=== PATIENT | male | born 1950 | race Caucasian/White ===

== ENCOUNTER 2017-04-26 07:52 | Day surgery (SDC) | payer MEDICARE, BC ==
[2017-04-26] VITALS (7 sets, daily range): BP systolic 116–147; BP diastolic 52–82; PULSE 67–82; RESP 18–20; TEMP 97.8–98.6; O2SAT 90–94
[~2017-04-26] VITALS: Ht 177.8 cm; Wt 114.6 kg
[~2017-04-26 07:52] MED LIST: ASPI81TA82 PO; COZA100T PO; HYDR-2768 PO; LEXA10TA PO; METO50CR OR; NAPR220T95 OR; SIMV80TA OR; ZOLP10TA3 OR
[2017-04-26] MEDS ORDERED: DUTA1CAP2 PO (08:24)
[2017-04-26] MEDS ORDERED: GLIP10TA6 PO (08:24)
[2017-04-26] MEDS ORDERED: HYDR25TA5 PO (08:24)
[2017-04-26] MEDS ORDERED: ESCI20TA PO (08:24)
[2017-04-26] MEDS ORDERED: PROSCAP3 PO (08:29)
[2017-04-26] MEDS ORDERED: TAMS0.4C4 PO (08:29)
[2017-04-26] MEDS ORDERED: ARTH650T6 PO (08:29)
[2017-04-26] MEDS ORDERED: TRAD5TAB PO (08:29)
[2017-04-26] MEDS ORDERED: NITR1SUB3 SL (08:29)
[2017-04-26] MEDS ORDERED: METF1000 PO (08:29)
[2017-04-26] MEDS ORDERED: METO50TA PO (08:29)
[2017-04-26] MEDS ORDERED: SIMV40TA PO (08:29)
[2017-04-26] MEDS ORDERED: LOSA100T PO (08:29)
[2017-04-26] MEDS ORDERED: PANT40TA3 PO (08:29)
[2017-04-26] MEDS ORDERED: SODIUM CHLOR 0.9% 1000 ML IV SCH (08:30)
[2017-04-26] MEDS ORDERED: LIDOCAINE HCL 1% 20 ML VIAL ONE (09:35)
[2017-04-26] MEDS ORDERED: MIDAZOLAM HCL 2 MG/2 ML VIAL ONE (09:56)
[2017-04-26] MEDS ORDERED: fentaNYL CITRATE 250 MCG/5 ML AMP ONE (09:56)
[2017-04-26] MEDS ORDERED: oxyCODONE/ACETAMINOPHEN 5 MG/325 MG TAB PO PRN (10:30)
--- NOTE | 2017-04-26 10:31 | PD.RAD ---
Post CT Procedure Prog Note Pre Procedure Diagnosis: (1) Mass of upper lobe of right lung Post Procedure Diagnosis: (1) Mass of upper lobe of right lung Procedure Date: Apr 26, 2017 Supervising Radiologist: Robin Little Proceduralist/Assist: terrell khan Estimated blood loss: none Anesthesia: Conscious Sedation Plan of Activity Patient to Unit: [facility]U Patient Condition: Good See PACS Report for procedural detail/treatment Robin Little MD Apr 26, 2017 10:31
--- NOTE | 2017-04-26 12:00 | RADRPT ---
EXAM DATE/TIME: 04/26/2017 11:31 [facility] COMPARISON: No previous studies available for comparison. INDICATIONS : Post lung biopsy. MEDICAL HISTORY : None. SURGICAL HISTORY : None. ENCOUNTER: Initial ACUITY: 1 day PAIN SCORE: 0/10 LOCATION: Bilateral chest FINDINGS: A single frontal expiratory view of the chest was performed. Right upper lobe mass. No evidence of p neumothorax. Mediastinal structures are in the midline. The cardio-mediastinal contours and bronchopulmonary markings are unremarkable for an expiratory exam . Osseous structures are intact. CONCLUSION: No pneumothorax. Robin Little MD on April 26, 2017 at 11:56 Board Certified Radiologist. This report was verified electronically.
--- NOTE | 2017-04-26 16:24 | RADRPT ---
EXAM DATE/TIME: 04/26/2017 10:07 [facility] COMPARISON: No previous studies available for comparison. INDICATIONS : Right lung mass. SEDATION TIME: 30 minutes BIOPSY SITE: Right upper lung. MEDICATION(S): 1.) 3 mg midazolam (Versed) IV 2.) 150 mcg fentanyl (Sublimaze) IV DEVICE(S): 1.) 18 gauge Monae blunt needle 2.) 20 gauge Temno core biopsy needle MEDICAL HISTORY : Cardiovascular disease. Benign prostatic hyperplasia, (BPH) Hypertension. Diverticulosis, diabetes. SURGICAL HISTORY : Coronary artery stent. Cholecystectomy. Tonsillectomy. ENCOUNTER: Initial ACUITY: 1 day PAIN SCORE: 0/10 LOCATION: Right chest A total of three core specimen(s) were obtained and sent to the laboratory for pathologic evaluation. PROCEDURE: 1. CT guided lung biopsy. Prior to the procedure informed consent was obtained. Any appropriate prior imaging studies were rev iewed. Using automated exposure control and adjustment of the mA and/or kV according to patient size, radiation dose was kept as low as reasonably achievable to obtain optimal diagnostic quality images. DICOM format image data is available electronically for review and comparison. The site was prepped in a sterile fashion. Full sterile technique was used, including cap, mask, qamar rile gloves and gown and a large sterile sheet. Hand hygiene and 2% chlorhexidine and/or betadine/al cohol prep was utilized per protocol for cutaneous antisepsis. The skin and subcutaneous tissues wer e infiltrated with local anesthetic solution. With CT guidance the previously identified target was localized. Biopsy was performed using the presc ribed needle as above. Adequate hemostasis was obtained with compression at the puncture site. Follow-up CT scan reveals no pneumothorax. Conscious sedation was performed with the prescribed dosages and duration as above in the presence of an independent trained radiology nurse to assist in the monitoring of the patient. EKG and oximetry remained stable throughout the procedure. The patient tolerated the procedure well and there were no complications. The patient was sent to Radiology Outpatient Unit in stable condition. CONCLUSION: Uncomplicated CT guided biopsy of right upper lobe mass. Robin Little MD on April 26, 2017 at 16:21 Board Certified Radiologist. This report was verified electronically.
== END 2017-04-26 15:00 | disposition home or self-care (01) ==
LOC: HRAD 07:52 → HRIP 07:53 → HRAD 15:00
PROVIDERS: ATTEND Family Medicine
DX: R91.8 Other nonspecific abnormal finding of lung field (principal); I25.10 Atherosclerotic heart disease of native coronary artery without angina pectoris; I10 Essential (primary) hypertension; E11.9 Type 2 diabetes mellitus without complications; N40.0 Benign prostatic hyperplasia without lower urinary tract symptoms; Z95.5 Presence of coronary angioplasty implant and graft
CPT/HCPCS: 32405; 71045; 77012; 88305; 88341; 88342; J2250; J3010; J7030

== ENCOUNTER → 2017-05-18 | Outpatient (CLI) | payer MEDICARE, BC ==
[~2017-05-18] MED LIST changes: +ARTH650T6 PO; -ASPI81TA82 PO; -COZA100T PO; +DUTA1CAP2 PO; +ECASA81 PO; +ESCI20TA PO; +GLIP10TA6 PO; +GLIP5TAB8 PO; -HYDR-2768 PO; +HYDR25TA5 PO; -LEXA10TA PO; +LOSA100T PO; +METF1000 PO; -METO50CR OR; +METO50TA PO; -NAPR220T95 OR; +NITR1SUB3 SL; +PANT40TA3 PO; +PROSCAP3 PO; +SIMV40TA PO; -SIMV80TA OR; +TAMS0.4C4 PO; +TRAD5TAB PO; -ZOLP10TA3 OR; +ZOLP10TA3 PO
--- NOTE | 2017-05-18 12:23 | RADRPT ---
EXAM DATE/TIME: 05/18/2017 11:42 [facility] COMPARISON: CHEST EXPIRATION ONLY, April 26, 2017, 11:31. CT NEEDLE BIOPSY LUNG, RIGHT, April 26, 2017, 10:0 7. INDICATIONS : Evaluate for pneumonia, pneumothorax, or communicable disease. Pre-op. MEDICAL HISTORY : Cardiovascular disease. Hypertension Carcinoma, lung. Benign prostatic hyperplasia, (BPH) SURGICAL HISTORY : Coronary artery stent. Cholecystectomy. Tonsillectomy. 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 No evidence of pneumothorax. Remainder of the lungs are clear. The hear t is normal in size. Both hemidiaphragms well delineated. Mild degenerative changes in the thoracic spine. CONCLUSION: 1. Stable radiographic appearance to the right upper lung tumor. 2. No new findings. Jose Collazo MD on May 18, 2017 at 12:14 Board Certified Radiologist. This report was verified electronically.
[2017-05-18 12:46] LABS: HEMATOCRIT 41.4 % (39.0-51.0); MEAN CELL VOLUME 93.4 FL (80.0-100.0); MEAN CORPUSCULAR HEMOGLOBIN 31.6 PG (27.0-34.0); MEAN CORPUSCULAR HGB CONC 33.8 % (32.0-36.0); MEAN PLATELET VOLUME 6.7 FL (7.0-11.0); PLATELET COUNT 289 TH/MM3 (150-450); RED BLOOD COUNT 4.43 MIL/MM3 (4.50-5.90); RED CELL DISTRIBUTION WIDTH 14.3 % (11.6-17.2); WHITE BLOOD COUNT 11.2 TH/MM3 (4.0-11.0)
[2017-05-18 12:57] LABS: BILIRUBIN, URINE NEG (NEG); BLOOD, URINE NEG (NEG); GLUCOSE,URINE 300 mg/dL (NEG); KETONE, URINE NEG (NEG); MUCUS URINE FEW /lpf (OCC); NITRITE,URINE NEG (NEG); PH, URINE 5.5 (5.0-8.5); URINE COLOR YELLOW (YELLW/STRAW); URINE LEUKOCYTE ESTERASE NEG (NEG)
[2017-05-18 13:09] LABS: CALCIUM 9.8 MG/DL (8.5-10.1); CREATININE 1.11 MG/DL (0.60-1.30)
== END ==
LOC: CPRE 10:14
PROVIDERS: ATTEND Thoracic Surgery (Cardiothoracic Vascular Surgery)
DX: C34.91 Malignant neoplasm of unspecified part of right bronchus or lung (principal)
CPT/HCPCS: 36415; 71046; 80048; 81001; 85027; 85610; 85730; 94010

== ENCOUNTER 2017-05-24 07:30 | Inpatient (IN) | payer MEDICARE, BC ==
[~2017-05-24] VITALS: Ht 177.8 cm; Wt 119.5 kg
[~2017-05-24 07:30] MED LIST changes: -GLIP10TA6 PO
[2017-05-25] VITALS (14 sets, daily range): BP systolic 102–157; BP diastolic 57–74; PULSE 63–78; RESP 20; TEMP 97.6–98.1; O2SAT 96–98
[2017-05-25] MEDS ORDERED: CHLORHEXIDINE GLUCONATE 2 % 1 PACK (2 CLOTHS) TOPICAL PRN (06:00)
[2017-05-25] MEDS ORDERED: POVIDONE IODINE 5% (ANTISEPSIS KIT) 4 APPLICATIONS EACH NARE PRN (06:00)
[2017-05-25] MEDS ORDERED: SODIUM CHLORID 0.9% 500 ML IV PRN (06:00)
[2017-05-25] MEDS ORDERED: LACTATED RINGER'S 1000 ML IV PRN (06:00)
[2017-05-25] MEDS ORDERED: METOPROLOL TARTRATE 25 MG TAB PO PRN (06:00)
[2017-05-25] MEDS ORDERED: BUPIVACAINE LIPOSO PF 1.3% INJ 20 ML, DEXAMETHASONE INJ 4 MG, MORPHINE INJ 8 MG in SODI... IRRIGATION SCH (06:30)
[2017-05-25] MEDS ORDERED: SUGAMMADEX SODIUM 200 MG/2 ML VIAL IV PUSH ONE (06:58)
[2017-05-25] MEDS ORDERED: ACETAMINOPHEN 1000 MG/100 ML 100 ML IV ONE (06:58)
[2017-05-25] MEDS ORDERED: ceFAZolin 2 GM PREMIX 50 ML ONE (06:58)
[2017-05-25] MEDS ORDERED: SODIUM CHLORIDE 0.9% FLUSH 10 ML FLUSH IV FLUSH PRN (10:15)
[2017-05-25] MEDS ORDERED: ACETAMINOPHEN 325 MG TAB PO PRN (10:15)
[2017-05-25] MEDS ORDERED: NITROGLYCERIN 0.4 MG SL 25 TABS/BTL SL PRN (10:15)
[2017-05-25] MEDS ORDERED: NALOXONE HCL 0.4 MG/ML AMP IV PUSH PRN (10:15)
[2017-05-25] MEDS ORDERED: Post-op Orders (for Pharmacy) OTHER ONE (10:15)
[2017-05-25] MEDS ORDERED: RESP: ALBUTEROL 2.5 MG/3 ML NEB (PRN) NEB (10:15)
[2017-05-25] MEDS ORDERED: ONDANSETRON HCL 4 MG/2 ML VIAL IV PUSH PRN (10:15)
[2017-05-25] MEDS ORDERED: MAGNESIUM HYDROXIDE SUSP 30 ML CUP PO PRN (10:15)
--- NOTE | 2017-05-25 10:29 | PD.OP ---
cc: Barrett Alvarado MD; Linette Capone MD Operative Report Date of Surgery: May 25, 2017 Preoperative Diagnosis: (1) Lung cancer, upper lobe Postoperative Diagnosis: same Procedure: Right video assisted thoracoscopic excisional biopsy right upper lobe cancer Mediastinal node dissection Anesthesia: Dr. Leyva Surgeon: Linette Capone [employer] Supervisor(s): EUGENIO Robertson Operation and Findings: After adequate general anesthesia the patient was placed in the left lateral decubitus position and the right chest was prepped and draped in usual manner. A small posterolateral thoracotomy incision was performed and electrocautery was used to obtain hemostasis and carry the dissection down through the latissimus dorsi. The serratus anterior was retracted anteriorly and the 5th intercostal space was entered under direct vision and selective single lung ventilation. A soft tissue retractor was placed after shingling the 5th rib posteriorly. An anterior port incision was then made and a port was inserted in to the right chest. A camera was then used to assist in mobilizing the right upper lobe as the tumor grossly invaded the chest wall. Exploration of the right hemithorax was significant for a ~4cm tumor in the posterior right upper lobe. The tumor was firmly adherent and grossly invading the chest wall. The upper lobe was mobilized from the chest wall using electrocautery. This tumor was excised using several Endo-FAIZA endoscopic staple loads. The tumor was submitted to pathology for permanent section. The mediastinum was exlored and a level 7 lymph node was excised consistent with a hypermetabolic node on PET-CT. No lymphadenopathy was appreciated along the trachea. A 32 [place] chest tube was then placed through the anterior port and this was secured with 0 silk suture. Exparel was placed in the T4-7 interspace for postoperative analgesia. The lung was ventilated and no significant air leaks were found. The wound was closed in layers approximately in the ribs initially with a 2. Vicryl figure-of- eight suture. The latissimus dorsi was reapproximated using a running 0 Vicryl suture. The subcutaneous tissues approximated running 2-0 Vicryl suture and the skin was approximated using running 4-0 Monocryl subcuticular stitch. All sponges history counts were correct at the close the procedure and the patient was transferred to the PACU for recovery purposes. It should be noted the patient arrived to the operating room in atrial fibrillation which converted spontaneously. Linette Capone MD May 25, 2017 10:29
[2017-05-25] MEDS ORDERED: MIDAZOLAM HCL 2 MG/2 ML VIAL ONE (10:58)
[2017-05-25] MEDS ORDERED: *morphine SULFATE 8 MG/ML PERIprocedure ONLY ONE (11:00)
--- NOTE | 2017-05-25 11:23 | RADRPT ---
EXAM DATE/TIME: 05/25/2017 11:02 [facility] COMPARISON: CHEST PA & LAT, May 18, 2017, 11:42. INDICATIONS : Evaluate chest post thoracotomy, chest tube placement MEDICAL HISTORY : Cardiovascular disease. Hypertension Carcinoma, lung. Benign prostatic hyperplasia, (BPH) SURGICAL HISTORY : Coronary artery stent. Cholecystectomy. Tonsillectomy. ENCOUNTER: Subsequent ACUITY: 1 week PAIN SCORE: 0/10 LOCATION: chest FINDINGS: A single view of the chest demonstrates some fullness in the right superhilar region. Right chest tub e seen with its tip near the apex. Left lung is clear. The cardiomediastinal contours are unremarkabl e. Osseous structures are intact. CONCLUSION: Chest tube placement of its tip in the medial apex without evidence of pneumothorax. Cas Hernandez MD on May 25, 2017 at 11:21 Board Certified Radiologist. This report was verified electronically.
[2017-05-25] MEDS ORDERED: *morphine SULFATE 10 MG/ML PERIprocedure ONLY ONE (11:24)
[2017-05-25] MEDS ORDERED: DO NOT ADM ANY ANTICOAGULANT DRUGS PRN (11:30)
[2017-05-25] MEDS: KETOROLAC TROMETHAMINE 30 MG/ML (IVP) VIAL IV PUSH SCH ×3 (11:40→23:39)
[2017-05-25] MEDS ORDERED: NORMOSOL R INJ 1,000 ML IV ONE (12:00)
[2017-05-25] MEDS ORDERED: LIDOCAINE HCL 1% PF 5 ML SYRINGE OTHER ONE (12:00)
[2017-05-25] MEDS ORDERED: LACTATED RINGER'S 1000 ML INJ 1,000 ML IV ONE (12:00)
[2017-05-25] MEDS ORDERED: NS 500 ML (EXCEL BAG) INJ 500 ML IV ONE (12:00)
[2017-05-25] MEDS ORDERED: ONDANSETRON HCL 4 MG/2 ML VIAL IV ONE (12:00)
[2017-05-25] MEDS ORDERED: DEXAMETHASONE SOD PHOS 4 MG/ML VIAL IV ONE (12:00)
[2017-05-25] MEDS ORDERED: PHENYLEPH/NS 1000 MCG/10 ML SYR IV ONE (12:00)
[2017-05-25] MEDS ORDERED: PROPOFOL 200 MG/20 ML AMP IV ONE (12:00)
[2017-05-25] MEDS ORDERED: ROCURONIUM INJ 50 MG/5 ML SYRINGE IV PUSH ONE (12:00)
[2017-05-25] MEDS ORDERED: METOPROLOL TARTRATE 5 MG/5 ML VIAL IV PUSH ONE (12:00)
[2017-05-25] MEDS ORDERED: INSULIN HUMAN REGULAR 1,000 UNITS/10 ML VIAL ONE (12:11)
[2017-05-25] MEDS ORDERED: GLUCAGON 1 MG/ML VIAL OTHER PRN (13:30)
[2017-05-25] MEDS ORDERED: DEXTROSE 50% IN WATER 50 ML VIAL(D50) IV PUSH PRN (13:30)
[2017-05-25] MEDS ORDERED: INSULIN HUMAN REGULAR 1,000 UNITS/10 ML VIAL IV PUSH ONE (13:30)
--- NOTE | 2017-05-25 13:37 | PD.CAR.PN ---
CVT Progress Note Subjective/Hospital Course: 66/ male followed by Dr Bey hx of tobacco abuse, recent right chest wall pain , followed for lung abnormality 2-3 yrs. Found to have RUL mass , BX showed squamous cell lung ca. electively admitted for surgery PMH: DM, tobacco abuse, CAD/stents x 2 , HTN, HLP surgery: 05/25 Right video assisted thoracoscopic excisional biopsy right upper lobe cancer Mediastinal node dissection per Dr Capone pt had episode of afib intraop elevated blood sugars/ requiring high dose coverage Objective: Vital Signs Date Time Temp Pulse Resp B/P (MAP) Pulse Ox O2 Delivery O2 Flow Rate FiO2 05/25/17 13:00 70 05/25/17 12:54 98.1 72 20 102/57 (72) 98 05/25/17 12:00 72 16 121/60 (80) 96 Nasal Cannula 3 05/25/17 11:45 68 16 118/56 (76) 96 Nasal Cannula 3 05/25/17 11:30 68 16 119/60 (79) 95 Nasal Cannula 3 05/25/17 11:15 74 16 161/84 (109) 96 Nasal Cannula 3 05/25/17 11:00 76 16 142/68 (92) 95 Nasal Cannula 3 05/25/17 10:50 97.5 78 16 139/67 (91) 95 Nasal Cannula 3 05/25/17 06:30 97.9 109 20 126/71 (89) 96 (1) Diabetes mellitus (2) Hyperlipemia (3) Hypertension (4) Tobacco abuse (5) Paroxysmal atrial fibrillation (6) right Video assisted thorascopy (7) Lung cancer, upper lobe (8) Mass of upper lobe of right lung Francine Monsivais May 25, 2017 13:37
--- NOTE | 2017-05-25 13:40 | HHI.FF ---
Face to Face Verification Diagnosis: (1) Lung cancer, upper lobe (2) Diabetes mellitus (3) Hyperlipemia (4) Tobacco abuse (5) Paroxysmal atrial fibrillation (6) Hypertension (7) right Video assisted thorascopy Home Health Nursing Order: Signs/symptoms of disease process Diabetic education Medication education-adverse effect Wound care and dressing changes Nursing assessment with vital signs Instructions: Thoracic Surgery patients Mandatory frequency Assess and evaluation, 2-3 x a week for one week Initial visit 1. Review post chest surgery instructions chest precautions, Activity, Elastic hose, Incision care, Driving, Incentive spirometry, Smoking, [place] , Work and other) 2. Need Betadine to paint incision 3. Medication reconciliation 4. Importance of follow up care/ check on appointments 5. Make calendar record temperature daily 6. When to call Home nurse, review instructions, phone list 7. Incentive Spirometry, demonstration Visit 1- Begin discharge instruction for patient family and/ or caregiver using teach back method- 1. Signs and symptoms of infection 2. Disease characteristics 3. Medicines and side effects 4. Foods and nutrition/ appetite 5. Infection control/ hand washing/ hygiene Visit 2- Continue teaching 1. Discharge instructions- include additional information on smoking cessation , Visit 3- Continue teaching- 1. Cough and deep breathing, incision monitoring. For any questions please call : / [employer] [facility] Cardiothoracic Surgery [phone] Incentive spirometry Q1 hr x 10, while awake, also use acapella device hourly whole awake chest wall Precautions: NO pushing or pulling, ( pt must use chest pillow to support chest with all activities and with coughing ( takes up to 3 months breast bone to heal ) Daily incision care: ok to shower daily ( 48hrs after chest tube removed ), no tub bath. Wash all incisions with liquid dial soap, clean wash cloth to each site, rinse and pat dry. Observe for any signs of infection, such as drainage which is dark yellow, watts, green or foul smelling. Immediately report to the surgeon any drainage from the chest incision, or legs, and for any abnormal drainage from the chest tube sites. Notify surgeon if any temp >101.5 degrees F. When specialty dressing removed/ or if you do not have one, continue to shower daily as above, then rinse and pat incision dry and paint with betadine daily x 5 days. Allow steri strips to fall off if you have any. Avoid lotions , creams, salves, oils, etc. for the first month For Dr. Capone patients , please obtain PA & Lat CXR in 2 weeks, results to Dr. Capone ( prescription will be given) ( ) (Tele: [phone]) , F/U appointment: as per DC instructions: PCP in 2 weeks, CV surgeon 2 weeks, For any questions regarding incisions/ dressing / meds / post op care or above Symptoms, Monday 8am-5pm Heart & Vascular Surgery Office ( Dr. Amaro & Dr. Capone), After Hours / Nights (5pm -8am) Weekends and Holidays Please call [facility] Cardiac Inter[facility] Care Unit ([facility]) Charge Nurse I have seen patient Robin Calvo on 05/25/17. My clinical findings support the need for the requested home health care services because: Patient has SOB Deconditioned w/ increased weakness I certify that my clinical findings support that this patient is homebound because: Post-op weakness Francine Monsivais May 25, 2017 13:40
[2017-05-25] MEDS: PCA - TOTAL MG MORPHINE DELIVERED PER SHIFT SCH ×2 (14:00→22:00)
[2017-05-25] MEDS: MORPHINE SULFATE 30 MG/30 ML PCA IV SCH (14:18)
[2017-05-25] MEDS: INSULIN ASPART SUPPLEMENTAL SCALE SQ SCH ×2 (16:49→21:00)
[2017-05-25] MEDS: RESP: BUDESONIDE 0.5 MG/2 ML NEB NEB SCH (20:57)
[2017-05-25] MEDS: SODIUM CHLORIDE 0.9% FLUSH 10 ML FLUSH IV FLUSH SCH (21:00)
[2017-05-25] MEDS ORDERED: INSULIN DETEMIR 100 UNITS/ML VIAL SQ SCH (21:00)
[2017-05-25] MEDS: METOPROLOL TARTRATE 50 MG TAB PO SCH (21:43)
[2017-05-25] MEDS: PRAVASTATIN SOD 80 MG TAB PO SCH (21:43)
[2017-05-25] MEDS: TAMSULOSIN HCL 0.4 MG CAP PO SCH (21:43)
[2017-05-25] MEDS: DOCUSATE CALCIUM 240 MG CAP PO SCH (21:43)
[2017-05-25] MEDS: HYDROCHLOROTHIAZIDE 25 MG TAB PO SCH (21:43)
[2017-05-25] MEDS: ESCITALOPRAM OXALATE 20 MG TAB PO SCH (21:44)
[2017-05-25] MEDS: PANTOPRAZOLE SOD 40 MG DELAYED RELEASE TAB PO SCH (21:44)
[2017-05-25] MEDS: ZOLPIDEM TARTRATE 10 MG TAB PO PRN (23:40)
[2017-05-26] VITALS (23 sets, daily range): BP systolic 124–153; BP diastolic 60–79; PULSE 58–96; RESP 18; TEMP 97.4–98; O2SAT 94–98
[2017-05-26] MEDS: KETOROLAC TROMETHAMINE 30 MG/ML (IVP) VIAL IV PUSH SCH (05:05)
[2017-05-26] MEDS: PCA - TOTAL MG MORPHINE DELIVERED PER SHIFT SCH ×3 (05:46→22:00)
[2017-05-26 05:54] LABS: AUTOMATED NEUTROPHIL # 11.1 TH/MM3 (1.8-7.7); BASOPHIL % 0.2 % (0.0-2.0); EOSINOPHIL # 0.1 TH/MM3 (0-0.4); EOSINOPHIL % 0.4 % (0.0-4.0); HEMATOCRIT 40.9 % (39.0-51.0); HEMOGLOBIN 13.8 GM/DL (13.0-17.0); LYMPHOCYTE # 2.1 TH/MM3 (1.0-4.8); MEAN CELL VOLUME 93.9 FL (80.0-100.0); MEAN CORPUSCULAR HEMOGLOBIN 31.8 PG (27.0-34.0); MEAN CORPUSCULAR HGB CONC 33.9 % (32.0-36.0); MEAN PLATELET VOLUME 6.5 FL (7.0-11.0); MONO % 10.7 % (0.0-8.0); MONOCYTE # 1.6 TH/MM3 (0-0.9); NEUT % 74.7 % (16.0-70.0); PLATELET COUNT 266 TH/MM3 (150-450); RED BLOOD COUNT 4.35 MIL/MM3 (4.50-5.90); RED CELL DISTRIBUTION WIDTH 14.2 % (11.6-17.2); WHITE BLOOD COUNT 14.8 TH/MM3 (4.0-11.0)
[2017-05-26 06:30] LABS: BICARBONATE 25.7 MEQ/L (21.0-32.0); BLOOD UREA NITROGEN 28 MG/DL (7-18); CHLORIDE 100 MEQ/L (98-107); CREATININE 1.23 MG/DL (0.60-1.30); GLOMERULAR FILTRATION RATE 59 ML/MIN (>89); GLUCOSE,RANDOM 282 MG/DL (74-106); SODIUM (NA) 137 MEQ/L (136-145)
--- NOTE | 2017-05-26 06:55 | RADRPT ---
EXAM DATE/TIME: 05/26/2017 05:35 [facility] COMPARISON: CHEST SINGLE AP, May 25, 2017, 11:02. INDICATIONS : Evaluate for pneumonia- Post Thoracotomy MEDICAL HISTORY : Hypertension. Carcinoma, lung. BPH SURGICAL HISTORY : Coronary artery stent. Cholecystectomy. Tonsillectomy. ENCOUNTER: Subsequent ACUITY: 1 week PAIN SCORE: 7/10 LOCATION: Bilateral chest FINDINGS: Right chest drainage tube tip remains in the medial right apex. Fullness in the medial right upper l sancho at site of lung mass is stable. No focal infiltrates seen. No evidence of pneumothorax. CONCLUSION: No new infiltrates seen. No evidence of pneumothorax. Jose Collazo MD on May 26, 2017 at 6:53 Board Certified Radiologist. This report was verified electronically.
[2017-05-26] MEDS ORDERED: glipiZIDE 5 MG TAB PO SCH (07:00)
[2017-05-26] MEDS: RESP: BUDESONIDE 0.5 MG/2 ML NEB NEB SCH ×2 (07:47→20:26)
[2017-05-26] MEDS ORDERED: TRADJENTA 5 MG PO SCH (09:00)
[2017-05-26] MEDS: ASPIRIN EC 81 MG TABEC PO SCH (09:22)
[2017-05-26] MEDS: FINASTERIDE 5 MG TAB PO SCH (09:22)
[2017-05-26] MEDS: metFORMIN HCL 500 MG TAB PO SCH ×2 (09:23→17:14)
[2017-05-26] MEDS: SODIUM CHLORIDE 0.9% FLUSH 10 ML FLUSH IV FLUSH SCH ×2 (09:23→20:40)
[2017-05-26] MEDS: INSULIN ASPART SUPPLEMENTAL SCALE SQ SCH ×4 (09:29→21:36)
--- NOTE | 2017-05-26 11:11 | PD.CAR.PN ---
CVT Progress Note Subjective/Hospital Course: 66/ male followed by Dr Bey hx of tobacco abuse, recent right chest wall pain , followed for lung abnormality 2-3 yrs. Found to have RUL mass , BX showed squamous cell lung ca. electively admitted for surgery PMH: DM, tobacco abuse, CAD/stents x 2 , HTN, HLP surgery: 05/25 Right video assisted thoracoscopic excisional biopsy right upper lobe cancer Mediastinal node dissection per Dr Capone pt had episode of afib intraop elevated blood sugars/ requiring high dose coverage 3/ blood sugars still elevated add bid levemir, discussed getting communication signals [employer] to speak with him HGB A1C pending ( states last test was 9) will need insulin sliding scale at home chest tube drained 80cc/ 12 hrs placed call to PCP add percocet for break through pain Objective: GENERAL: A&O x 3 SKIN: Warm and dry. incision intact and well approximated right postero lateral chest wall HEAD: Normocephalic. EYES: No scleral icterus. No injection or drainage. NECK: Supple, trachea midline. No JVD or lymphadenopathy. CARDIOVASCULAR: Regular rate and rhythm without murmurs, gallops, or rubs. RESPIRATORY: Breath sounds equal bilaterally. No accessory muscle use. chest tube to wall suction, no air leak drained 80cc/ 12 hrs GASTROINTESTINAL: Abdomen soft, non-tender, nondistended. MUSCULOSKELETAL: No cyanosis, or edema. BACK: Nontender without obvious deformity. No CVA tenderness. Vital Signs Date Time Temp Pulse Resp B/P (MAP) Pulse Ox O2 Delivery O2 Flow Rate FiO2 05/26/17 10:34 71 05/26/17 09:00 74 05/26/17 08:30 98 Room Air 05/26/17 08:30 97.8 65 18 132/61 (84) 98 05/26/17 08:30 61 05/26/17 07:47 97 Nasal Cannula 2.00 05/26/17 06:07 18 05/26/17 06:00 61 05/26/17 05:46 18 05/26/17 05:00 65 05/26/17 04:00 69 05/26/17 03:00 97.6 65 124/72 (89) 98 05/26/17 03:00 58 05/26/17 02:00 62 05/26/17 01:00 62 05/26/17 00:00 62 05/25/17 23:00 97.7 68 145/68 (93) 97 05/25/17 23:00 66 05/25/17 22:00 70 05/25/17 22:00 20 05/25/17 21:02 96 Nasal Cannula 2.00 05/25/17 21:00 78 05/25/17 20:00 74 05/25/17 19:00 70 05/25/17 19:00 97.6 77 157/74 (101) 97 05/25/17 18:00 78 05/25/17 17:00 71 05/25/17 16:00 73 05/25/17 15:00 70 05/25/17 15:00 97.9 70 20 115/65 (82) 97 05/25/17 14:43 98 Nasal Cannula 3.00 05/25/17 14:18 16 05/25/17 14:00 63 05/25/17 14:00 21 05/25/17 13:00 70 05/25/17 12:54 98.1 72 20 102/57 (72) 98 05/25/17 12:00 72 16 121/60 (80) 96 Nasal Cannula 3 05/25/17 11:45 68 16 118/56 (76) 96 Nasal Cannula 3 05/25/17 11:30 68 16 119/60 (79) 95 Nasal Cannula 3 05/25/17 11:15 74 16 161/84 (109) 96 Nasal Cannula 3 Labs: Laboratory Tests Test 05/26/17 04:44 White Blood Count 14.8 TH/MM3 (4.0-11.0) Red Blood Count 4.35 MIL/MM3 (4.50-5.90) Hemoglobin 13.8 GM/DL (13.0-17.0) Hematocrit 40.9 % (39.0-51.0) Mean Corpuscular Volume 93.9 FL (80.0-100.0) Mean Corpuscular Hemoglobin 31.8 PG (27.0-34.0) Mean Corpuscular Hemoglobin Concent 33.9 % (32.0-36.0) Red Cell Distribution Width 14.2 % (11.6-17.2) Platelet Count 266 TH/MM3 (150-450) Mean Platelet Volume 6.5 FL (7.0-11.0) Neutrophils (%) (Auto) 74.7 % (16.0-70.0) Lymphocytes (%) (Auto) 14.0 % (9.0-44.0) Monocytes (%) (Auto) 10.7 % (0.0-8.0) Eosinophils (%) (Auto) 0.4 % (0.0-4.0) Basophils (%) (Auto) 0.2 % (0.0-2.0) Neutrophils # (Auto) 11.1 TH/MM3 (1.8-7.7) Lymphocytes # (Auto) 2.1 TH/MM3 (1.0-4.8) Monocytes # (Auto) 1.6 TH/MM3 (0-0.9) Eosinophils # (Auto) 0.1 TH/MM3 (0-0.4) Basophils # (Auto) 0.0 TH/MM3 (0-0.2) CBC Comment DIFF FINAL Differential Comment Blood Urea Nitrogen 28 MG/DL (7-18) Creatinine 1.23 MG/DL (0.60-1.30) Random Glucose 282 MG/DL (74-106) Calcium Level 9.0 MG/DL (8.5-10.1) Sodium Level 137 MEQ/L (136-145) Potassium Level 3.8 MEQ/L (3.5-5.1) Chloride Level 100 MEQ/L (98-107) Carbon Dioxide Level 25.7 MEQ/L (21.0-32.0) Anion Gap 11 MEQ/L (5-15) Estimat Glomerular Filtration Rate 59 ML/MIN (>89) Result Diagram: 05/26/1744305/26/17443 (1) Diabetes mellitus Plan: waiting on HGB A1c on levemir and high dose insulin sliding scale on po meds diabetic diet consult [employer] (2) Hyperlipemia Plan: on statin (3) Hypertension Plan: home meds (4) Tobacco abuse (5) Paroxysmal atrial fibrillation Plan: seen by holger Taveras when chest tube dc f/u visit in one week (6) right Video assisted thorascopy Plan: await path has appointment with Dr Alvarado on 06/13 (7) Lung cancer, upper lobe (8) Mass of upper lobe of right lung Francine Monsivais May 26, 2017 11:11
[2017-05-26] MEDS: oxyCODONE/ACETAMINOPHEN 5 MG/325 MG TAB PO PRN ×3 (11:28→20:39)
[2017-05-26] MEDS ORDERED: glipiZIDE 5 MG TAB PO ONE (12:45)
[2017-05-26] MEDS: glipiZIDE 5 MG TAB PO SCH (15:51)
[2017-05-26] MEDS: MORPHINE SULFATE 30 MG/30 ML PCA IV SCH (16:12)
[2017-05-26] MEDS: INSULIN DETEMIR 100 UNITS/ML VIAL SQ SCH (16:13)
[2017-05-26 17:34] LABS: HEMOGLOBIN A1C 10.4 % (4.3-6.0)
--- NOTE | 2017-05-26 18:01 | EKG ---
Date Performed: 05/26/2017 Time Performed: 08:41:30 PTAGE: 66 years EKG: Normal Sinus rhythm . Baseline artifact Likely no significant change Borderline ECG PREVIOUS TRACING : 03/12/2012 08.38 DOCTOR: Diya Patricia Interpretating Date/Time 05/26/2017 17:58:48
[2017-05-26] MEDS: DOCUSATE CALCIUM 240 MG CAP PO SCH (20:37)
[2017-05-26] MEDS: PANTOPRAZOLE SOD 40 MG DELAYED RELEASE TAB PO SCH (20:38)
[2017-05-26] MEDS: TAMSULOSIN HCL 0.4 MG CAP PO SCH (20:38)
[2017-05-26] MEDS: ZOLPIDEM TARTRATE 10 MG TAB PO PRN (20:38)
[2017-05-26] MEDS: HYDROCHLOROTHIAZIDE 25 MG TAB PO SCH (20:38)
[2017-05-26] MEDS: PRAVASTATIN SOD 80 MG TAB PO SCH (20:38)
[2017-05-26] MEDS: METOPROLOL TARTRATE 50 MG TAB PO SCH (20:38)
[2017-05-26] MEDS: ESCITALOPRAM OXALATE 20 MG TAB PO SCH (20:38)
--- NOTE | 2017-05-26 21:45 | MB ---
cc: Veronica Cho MD, Maria I MD McCollum, Alfonza DATE OF CONSULT: 05/26/2017 REASON FOR CONSULTATION: Atrial fibrillation. HISTORY OF PRESENT ILLNESS: A 66-year-old white male who was found to be in paroxysmal atrial fibrillation while undergoing lung biopsy. Atrial fibrillation was transient. The patient denies palpitations or shortness of breath. He does have right-sided chest pain after his right upper lung biopsy. PAST MEDICAL HISTORY: Remarkable for hyperlipidemia, coronary artery disease status post stents in the RCA, obesity, obstructive sleep apnea, hypertension, benign prostatic hypertrophy and type 2 diabetes mellitus. PAST SURGICAL HISTORY: Cholecystectomy, right knee surgery, left hand surgery, right rotator cuff surgery, left elbow surgery. FAMILY HISTORY: Mother at 86 with Alzheimer's dementia. Father at 55 with a brain aneurysm. SOCIAL HISTORY: The patient is . He is a former smoker and quit in 1999. He does not drink alcohol. REVIEW OF SYSTEMS: As stated in history of present illness. PHYSICAL EXAMINATION: GENERAL: The patient is in no acute distress. VITAL SIGNS: Blood pressure 120/70 mmHg, heart rate 58 beats per minute. HEAD/NECK: Without JVD or carotid bruits. LUNGS: Clear to auscultation. HEART: Normal S1 and S2 with no murmurs or gallops. ABDOMEN: Soft with positive bowel sounds. EXTREMITIES: Without edema. LABORATORY DATA: CBC remarkable for a white count of 14.8. BMP remarkable for a glucose of 282 and a GFR of 59. CARDIOLOGY STUDIES: Electrocardiogram showed normal sinus rhythm with nonspecific inferior T-wave changes. MEDICATIONS: Currently include aspirin 81 mg daily, metformin 1 gram twice daily, finasteride 5 mg daily, glipizide 5 mg twice a day, pantoprazole 40 mg daily, hydrochlorothiazide 25 mg daily, metoprolol 50 mg at bedtime, tamsulosin 0.4 mg daily, Pravastatin 80 mg daily. IMPRESSION: A 66-year-old white male with paroxysmal atrial fibrillation and high embolic risk considering his presence of hypertension, diabetes and vascular disease. I recommend Eliquis 5 mg b.i.d. for embolic protection ____ with cardiothoracic surgery. At that time, we will be stopping the aspirin. I will change the metoprolol tartrate to 25 mg twice a day and adjust as needed. Upon discharge, I will see the patient in 1 to 2 weeks. MD VIDHYA Lopez//ivette , 06:00 PM , 09:27 PM
[2017-05-27] VITALS (29 sets, daily range): BP systolic 131–177; BP diastolic 63–81; PULSE 66–84; RESP 17–20; TEMP 97.5–98.1; O2SAT 93–98
[2017-05-27] MEDS: oxyCODONE/ACETAMINOPHEN 5 MG/325 MG TAB PO PRN (03:23)
--- NOTE | 2017-05-27 05:26 | RADRPT ---
EXAM DATE/TIME: 05/27/2017 04:56 [facility] COMPARISON: CHEST SINGLE AP, May 26, 2017, 5:35. INDICATIONS : Shortness of breath, possible pulmonary disease. MEDICAL HISTORY : Hypertension. Carcinoma, lung. BPH SURGICAL HISTORY : Coronary artery stent. Cholecystectomy. Tonsillectomy. ENCOUNTER: Subsequent ACUITY: 1 week PAIN SCORE: 6/10 LOCATION: Right chest FINDINGS: Right chest tube tip at the apex. No residual pneumothorax. Both lungs are clear. The heart is nor mal in size. Right rib fractures. CONCLUSION: No evidence of residual pneumothorax with right chest tube in place. Jose Collazo MD on May 27, 2017 at 5:24 Board Certified Radiologist. This report was verified electronically.
[2017-05-27] MEDS: PCA - TOTAL MG MORPHINE DELIVERED PER SHIFT SCH (06:00)
[2017-05-27] MEDS: INSULIN DETEMIR 100 UNITS/ML VIAL SQ SCH ×2 (06:21→16:41)
[2017-05-27] MEDS: oxyCODONE/ACETAMINOPHEN 10 MG/325 MG TAB PO PRN ×4 (07:22→20:31)
[2017-05-27] MEDS: INSULIN ASPART SUPPLEMENTAL SCALE SQ SCH ×4 (08:00→20:44)
[2017-05-27] MEDS: RESP: BUDESONIDE 0.5 MG/2 ML NEB NEB SCH ×2 (08:14→21:07)
[2017-05-27] MEDS: FINASTERIDE 5 MG TAB PO SCH (08:36)
[2017-05-27] MEDS: metFORMIN HCL 500 MG TAB PO SCH ×2 (08:36→16:40)
[2017-05-27] MEDS: ASPIRIN EC 81 MG TABEC PO SCH (08:36)
[2017-05-27] MEDS: SODIUM CHLORIDE 0.9% FLUSH 10 ML FLUSH IV FLUSH SCH ×2 (08:36→20:32)
[2017-05-27] MEDS: glipiZIDE 5 MG TAB PO SCH ×2 (08:36→15:47)
--- NOTE | 2017-05-27 11:14 | PD.CAR.PN ---
CVT Progress Note CVT: POD #: 2 Subjective/Hospital Course: 66/ male followed by Dr Bey hx of tobacco abuse, recent right chest wall pain , followed for lung abnormality 2-3 yrs. Found to have RUL mass , BX showed squamous cell lung ca. electively admitted for surgery PMH: DM, tobacco abuse, CAD/stents x 2 , HTN, HLP surgery: 05/25 Right video assisted thoracoscopic excisional biopsy right upper lobe cancer Mediastinal node dissection per Dr Capone pt had episode of afib intraop elevated blood sugars/ requiring high dose coverage 05/26 blood sugars still elevated add bid levemir, discussed getting para educator to speak with him HGB A1C pending ( states last test was 9) will need insulin sliding scale at home chest tube drained 80cc/ 12 hrs placed call to PCP add percocet for break through pain 05/27/17 c/o incisional pain. otherwise, doing well. Objective: Vital Signs Date Time Temp Pulse Resp B/P (MAP) Pulse Ox O2 Delivery O2 Flow Rate FiO2 05/27/17 10:00 74 05/27/17 09:00 70 05/27/17 08:17 95 21 05/27/17 08:00 69 05/27/17 07:42 98.1 69 20 133/64 (87) 96 05/27/17 07:00 71 05/27/17 06:00 66 05/27/17 06:00 16 05/27/17 05:00 69 05/27/17 04:26 18 05/27/17 04:00 66 05/27/17 03:00 68 05/27/17 03:00 97.6 75 177/78 (111) 94 05/27/17 02:00 66 05/27/17 01:00 66 05/27/17 00:00 70 05/26/17 23:00 98.0 70 125/68 (87) 94 05/26/17 23:00 66 05/26/17 22:00 66 05/26/17 22:00 18 05/26/17 21:00 72 05/26/17 20:28 98 2.00 05/26/17 20:00 73 05/26/17 19:00 78 05/26/17 19:00 97.8 78 153/79 (103) 95 05/26/17 18:02 78 05/26/17 17:18 82 05/26/17 16:19 18 05/26/17 16:12 18 05/26/17 15:45 97.4 70 18 139/67 (91) 96 05/26/17 15:45 96 Room Air 05/26/17 15:45 70 05/26/17 14:03 96 05/26/17 13:42 73 05/26/17 13:11 18 05/26/17 11:30 97.6 68 18 125/60 (81) 95 05/26/17 11:30 69 05/26/17 11:30 95 Room Air Result Diagram: 05/26/17 0444 05/26/17 0444 Imaging: Last 24 hours Impressions Chest X-Ray 05/27/17 0600 Signed Impressions: Service Date/Time: Monday, May 27, 2017 04:56 - CONCLUSION: No evidence of residual pneumothorax with right chest tube in place. Jose Collazo MD Cardiovascular: RRR Telemetry: NSR Pulmonary: CTA GI/: NABS, NT Incision: dry and intact CT: ~50ml/12 hrs - no air leak Plan: D/C chest tube Start eliquis per Dr. Cho' recommendation Plan d/c tomorrow Encourage ambulation (1) Diabetes mellitus Plan: waiting on HGB A1c on levemir and high dose insulin sliding scale on po meds diabetic diet consult para educator (2) Hyperlipemia Plan: on statin (3) Hypertension Plan: home meds (4) Tobacco abuse (5) Paroxysmal atrial fibrillation Plan: seen by Jose Cho, start eliquis when chest tube dc f/u visit in one week (6) right Video assisted thorascopy Plan: await path has appointment with Dr Alvarado on 06/13 (7) Lung cancer, upper lobe (8) Mass of upper lobe of right lung Linette Capone MD May 27, 2017 11:14
--- NOTE | 2017-05-27 12:37 | RADRPT ---
EXAM DATE/TIME: 05/27/2017 12:13 [facility] COMPARISON: CHEST EXPIRATION ONLY, April 26, 2017, 11:31. CT NEEDLE BIOPSY LUNG, RIGHT, April 26, 2017, 10:0 7. CHEST SINGLE AP, May 27, 2017, 4:56. INDICATIONS : Evaluate for pneumothorax. MEDICAL HISTORY : Hypertension. Carcinoma, lung. BPH. SURGICAL HISTORY : Coronary artery stent. Cholecystectomy. Tonsillectomy. ENCOUNTER: Subsequent ACUITY: 3 days PAIN SCORE: 0/10 LOCATION: chest FINDINGS: Right chest tube has been removed. There is no pneumothorax. There is volume loss remaining right u pper lobe. There is no pleural effusion. CONCLUSION: No pneumothorax. Some volume loss remaining right upper lobe.. Fermín Jones MD FACR on May 27, 2017 at 12:35 Board Certified Radiologist. This report was verified electronically.
[2017-05-27] MEDS: DOCUSATE CALCIUM 240 MG CAP PO SCH (20:30)
[2017-05-27] MEDS: APIXABAN 5 MG TABLET PO SCH (20:31)
[2017-05-27] MEDS: ESCITALOPRAM OXALATE 20 MG TAB PO SCH (20:31)
[2017-05-27] MEDS: TAMSULOSIN HCL 0.4 MG CAP PO SCH (20:31)
[2017-05-27] MEDS: PANTOPRAZOLE SOD 40 MG DELAYED RELEASE TAB PO SCH (20:31)
[2017-05-27] MEDS: PRAVASTATIN SOD 80 MG TAB PO SCH (20:31)
[2017-05-27] MEDS: HYDROCHLOROTHIAZIDE 25 MG TAB PO SCH (20:31)
[2017-05-27] MEDS: METOPROLOL TARTRATE 50 MG TAB PO SCH (20:32)
[2017-05-27] MEDS: ZOLPIDEM TARTRATE 10 MG TAB PO PRN (20:33)
[2017-05-27] MEDS ORDERED: APIXABAN 2.5 MG TABLET PO SCH (21:00)
[2017-05-28] VITALS (13 sets, daily range): BP systolic 140–142; BP diastolic 63–72; PULSE 62–76; RESP 17–18; TEMP 98–98.2; O2SAT 93–94
[2017-05-28] MEDS: oxyCODONE/ACETAMINOPHEN 10 MG/325 MG TAB PO PRN ×3 (02:06→10:26)
--- NOTE | 2017-05-28 06:11 | RADRPT ---
EXAM DATE/TIME: 05/28/2017 04:28 [facility] COMPARISON: CHEST SINGLE AP, May 27, 2017, 12:13. INDICATIONS : Shortness of breath, possible pulmonary disease. MEDICAL HISTORY : Hypertension. Carcinoma, lung. BPH SURGICAL HISTORY : Coronary artery stent. Cholecystectomy. Tonsillectomy. ENCOUNTER: Subsequent ACUITY: 1 week PAIN SCORE: 0/10 LOCATION: Bilateral chest FINDINGS: The lungs are symmetrically aerated. No infiltrates seen. The heart is normal in size. Multiple ri ght rib fractures, stable configuration. CONCLUSION: The lungs are clear. Jose Collazo MD on May 28, 2017 at 6:09 Board Certified Radiologist. This report was verified electronically.
[2017-05-28] MEDS: INSULIN DETEMIR 100 UNITS/ML VIAL SQ SCH (06:33)
[2017-05-28] MEDS: glipiZIDE 5 MG TAB PO SCH (06:33)
[2017-05-28] MEDS: INSULIN ASPART SUPPLEMENTAL SCALE SQ SCH (08:00)
[2017-05-28] MEDS: ASPIRIN EC 81 MG TABEC PO SCH (08:40)
[2017-05-28] MEDS: APIXABAN 5 MG TABLET PO SCH (08:40)
[2017-05-28] MEDS: FINASTERIDE 5 MG TAB PO SCH (08:40)
[2017-05-28] MEDS: metFORMIN HCL 500 MG TAB PO SCH (08:40)
[2017-05-28] MEDS: SODIUM CHLORIDE 0.9% FLUSH 10 ML FLUSH IV FLUSH SCH (08:41)
[2017-05-28] MEDS: RESP: BUDESONIDE 0.5 MG/2 ML NEB NEB SCH (10:00)
[2017-05-28] MEDS ORDERED: INSU1INJ5 SQ (10:57)
[2017-05-28] MEDS ORDERED: OXYC1TAB36 PO (10:57)
[2017-05-28] MEDS ORDERED: APIX5TAB PO (10:57)
[2017-05-28] MEDS ORDERED: DOCU1CAP26 PO (10:57)
--- NOTE | 2017-05-28 11:03 | HHI.DS ---
Discharge Summary Admission Date May 25, 2017 at 05:31 Discharge Date: May 28, 2017 Admitting Diagnosis Lung cancer (1) Lung cancer, upper lobe Diagnosis: Principal ICD Codes: C34.10 - Malignant neoplasm of upper lobe, unspecified bronchus or lung (2) Hypertension Diagnosis: Secondary ICD Codes: I10 - Essential (primary) hypertension (3) Paroxysmal atrial fibrillation Diagnosis: Secondary ICD Codes: I48.0 - Paroxysmal atrial fibrillation (4) Hyperlipemia Diagnosis: Secondary ICD Codes: E78.5 - Hyperlipidemia, unspecified (5) Diabetes mellitus Diagnosis: Secondary ICD Codes: E11.9 - Type 2 diabetes mellitus without complications Procedures Right VATS assisted RUL excisional biopsy with lymph node dissection Brief History Subjective/Hospital Course: 66/ male followed by Dr Davidson hx of tobacco abuse, recent right chest wall pain , followed for lung abnormality 2-3 yrs. Found to have RUL mass , BX showed squamous cell lung ca. electively admitted for surgery PMH: DM, tobacco abuse, CAD/stents x 2 , HTN, HLP CBC/BMP: 05/26/17 0444 05/26/17 0444 Significant Findings Laboratory Tests Test 05/26/17 04:44 White Blood Count 14.8 TH/MM3 (4.0-11.0) Red Blood Count 4.35 MIL/MM3 (4.50-5.90) Mean Platelet Volume 6.5 FL (7.0-11.0) Neutrophils (%) (Auto) 74.7 % (16.0-70.0) Monocytes (%) (Auto) 10.7 % (0.0-8.0) Neutrophils # (Auto) 11.1 TH/MM3 (1.8-7.7) Monocytes # (Auto) 1.6 TH/MM3 (0-0.9) Blood Urea Nitrogen 28 MG/DL (7-18) Random Glucose 282 MG/DL (74-106) Estimat Glomerular Filtration Rate 59 ML/MIN (>89) Hemoglobin A1c 10.4 % (4.3-6.0) Imaging Last Impressions Chest X-Ray 05/28/17 0600 Signed Impressions: Service Date/Time: Sunday, May 28, 2017 04:28 - CONCLUSION: The lungs are clear. Jose Collazo MD PE at Discharge chest - CTA COR - RRR wound - dry and intact Hospital Course surgery: 05/25 Right video assisted thoracoscopic excisional biopsy right upper lobe cancer Mediastinal node dissection per Dr Capone pt had episode of afib intraop elevated blood sugars/ requiring high dose coverage 3/ blood sugars still elevated add bid levemir, discussed getting certified diabetes educator to speak with him HGB A1C pending ( states last test was 9) will need insulin sliding scale at home chest tube drained 80cc/ 12 hrs placed call to PCP add percocet for break through pain 05/27/17 c/o incisional pain. otherwise, doing well. Still having issues with glycemic control. Requested he contact PCP in AM for management. parent educator recommends Levemir Flex pen with QID glucose monitoring Pt Condition on Discharge: Good Discharge Disposition: Disch w/ Home Health Serv Discharge Instructions DIET: Follow Instructions for: Diabetic Diet Activities you can perform: Weight Bearing as Joanna, Shower Only-No Bath Activities to avoid: Lifting/Bending, Strenuous Activity, Driving Follow up Referrals: Appointment for Follow Up - 4 Weeks with Barrett Alvarado MD Cardiology - 2 Weeks with Veronica Cho MD PCP Follow-up - 2 Weeks with Chelsea Davidson Jr, Md Surgical - 2 Weeks with Francine Monsivais New Orders: X-RAY CHEST PA & LAT - 2 Weeks New Medications: Insulin Detemir Inj (Levemir Flextouch Pen Inj) 300 unit/3 ML Pen 1 UNITS SQ BIDAC for Blood Sugar Management, #1 PEN 3 Refills Apixaban (Eliquis) 5 Mg Tab 5 MG PO BID for Blood Clot Prevention, #60 TAB Docusate Calcium (Sm Stool Softener) 240 Mg Cap 240 MG PO HS for Constipation, #28 CAP Oxycodone HCl/Acetaminophen (Oxycodone-Acetaminophen 10-325) 10 Mg-325 Mg Tablet 1 TAB PO Q4H PRN for PAIN SCALE 6-10, #30 TAB Continued Medications: Acetaminophen ER 8 HR (Arthritis Pain Reliever ER 8 HR) 650 Mg Tab 650 MG PO Q8HR PRN for PAIN, TAB [address] (Aspirin DR) 81 Mg Tabdr 81 MG PO DAILY, TAB 0 Refills Dutasteride (Dutasteride) 0.5 Mg Cap 0.5 MG PO DAILY for Manage Prostate Problems, #30 CAP 0 Refills Escitalopram (Escitalopram) 20 Mg Tab 20 MG PO HS, #30 TAB 0 Refills Glipizide (Glipizide) 5 Mg Tab 10 MG PO BIDAC for Blood Sugar Management, #60 TAB 0 Refills Take 30 minutes before a meal Hydrochlorothiazide (Hydrochlorothiazide) 25 Mg Tab 25 MG PO HS, #30 TAB 0 Refills Linagliptin (Tradjenta) 5 Mg Tab 5 MG PO DAILY for Blood Sugar Management, #30 TAB 0 Refills Losartan (Losartan) 100 Mg Tab 100 MG PO HS for Blood Pressure Management, #30 TAB 0 Refills Metformin (Metformin) 1,000 Mg Tab 1000 MG PO BIDPC for Blood Sugar Management, #60 TAB 0 Refills Metoprolol Tartrate (Metoprolol Tartrate) 50 Mg Tab 50 MG PO HS, #30 TAB 0 Refills Misc Natural Products (Prostate Therapy Complex) 1 Cap 1 CAP PO DAILY Nitroglycerin SL (Nitroglycerin SL) 0.4 Mg Subl 0.4 MG SL DIRECTED PRN for CHEST PAIN, #100 TAB.SL 0 Refills ONE TABLET UNDER THE TONGUE NEEDED FOR CHEST PAIN, MAY REPEAT EVERY FIVE MINUTES FOR A TOTAL OF 3 DOSES OR CALL 911 IF NO RELIEF Simvastatin (Simvastatin) 40 Mg Tab 40 MG PO HS for Cholesterol Management, #30 TAB 0 Refills Tamsulosin (Tamsulosin) 0.4 Mg Cap 0.4 MG PO HS for Manage Prostate Problems, #30 CAP 0 Refills Zolpidem (Zolpidem) 10 Mg Tab 10 MG PO HS PRN for INSOMNIA, TAB 0 Refills Linette Capone MD May 28, 2017 11:03
== END 2017-05-28 11:50 | disposition home health service (06) | DRG 168 ==
LOC: HSDI 05-25 05:31 → HCPC 05-25 12:25
PROVIDERS: ADMIT Thoracic Surgery (Cardiothoracic Vascular Surgery); ATTEND Thoracic Surgery (Cardiothoracic Vascular Surgery)
PROC: 07B74ZX Excision of Thorax Lymphatic, Percutaneous Endoscopic Approach, Diagnostic (ICD-10-PCS; 2017-05-25)
PROC: 0BBC4ZX Excision of Right Upper Lung Lobe, Percutaneous Endoscopic Approach, Diagnostic (ICD-10-PCS; principal; 2017-05-25 07:21)
DX: C34.11 Malignant neoplasm of upper lobe, right bronchus or lung (principal); I48.0 Paroxysmal atrial fibrillation; Z79.82 Long term (current) use of aspirin; I10 Essential (primary) hypertension; E78.5 Hyperlipidemia, unspecified; Z79.84 Long term (current) use of oral hypoglycemic drugs; E11.9 Type 2 diabetes mellitus without complications; I25.10 Atherosclerotic heart disease of native coronary artery without angina pectoris; Z95.5 Presence of coronary angioplasty implant and graft; N40.0 Benign prostatic hyperplasia without lower urinary tract symptoms; G47.33 Obstructive sleep apnea (adult) (pediatric); E66.9 Obesity, unspecified; Z68.37 Body mass index [BMI] 37.0-37.9, adult; H91.90 Unspecified hearing loss, unspecified ear; Z87.891 Personal history of nicotine dependence
CPT/HCPCS: 71045; 76937; 80048; 82948; 83036; 85025; 86850; 86900; 86901; 88305; 88307; 88309; 93005; 94150; 94640; C9290; J0131; J0690; J1100; J1815; J1885; J2250; J2270; J2370; J2405; J3010; J7040; J7120; J7613; J7626

== ENCOUNTER 2017-06-26 06:36 | Day surgery (SDC) | payer MEDICARE, BC ==
[~2017-06-26] VITALS: Ht 175.3 cm; Wt 110.0 kg
[~2017-06-26 06:36] MED LIST changes: +APIX5TAB PO; +DOCU1CAP26 PO; +INSU1INJ5 SQ; +OXYC1TAB36 PO; -PANT40TA3 PO
[2017-06-26 07:04] VITALS: BP 134/87; PULSE 76; RESP 18; TEMP 98.2; O2SAT 93
[2017-06-26] MEDS ORDERED: POVIDONE IODINE 5% (ANTISEPSIS KIT) 4 APPLICATIONS EACH NARE SCH (07:15)
[2017-06-26] MEDS ORDERED: CHLORHEXIDINE GLUCONATE 2 % 1 PACK (2 CLOTHS) TOPICAL SCH (07:15)
[2017-06-26] MEDS ORDERED: SODIUM CHLORIDE 0.9% 1000 ML IV SCH (07:15)
[2017-06-26] MEDS ORDERED: VANCOMYCIN 1000 MG/NS 250 ML - implanted port/tunneled catheter IV SCH ×2 (07:15)
[2017-06-26] MEDS ORDERED: ceFAZolin 2 GM PREMIX 50 ML - implanted port/tunneled catheter insertion IV SCH (07:15)
[2017-06-26] MEDS ORDERED: PANT40TA3 PO (07:17)
[2017-06-26] MEDS ORDERED: LIDOCAINE 1%/EPINEPHrine 1:100,000 SOLN 30 ML VIAL ONE (07:47)
[2017-06-26] MEDS ORDERED: fentaNYL CITRATE 250 MCG/5 ML AMP ONE (07:49)
[2017-06-26] MEDS ORDERED: MIDAZOLAM HCL 5 MG/5 ML VIAL ONE (07:49)
[2017-06-26 08:55] VITALS: BP 129/66; PULSE 90; RESP 18; TEMP 97.6; O2SAT 92
[2017-06-26 09:10] VITALS: BP 131/75; PULSE 88; RESP 18; O2SAT 92
--- NOTE | 2017-06-26 09:13 | PD.RAD ---
Post Procedure Progress Note Pre Procedure Diagnosis: (1) Lung cancer, upper lobe Post Procedure Diagnosis: (1) Lung cancer, upper lobe Procedure Date: Jun 26, 2017 Supervising Radiologist: Edil Pathak Proceduralist/Assist: Sarah Zamora RT(R), RT Roe(R) Anesthesia: Conscious Sedation Plan of Activity Patient to Unit: ROPU Patient Condition: Good See PACS Report for procedural detail/treatment Central Venous Access Device Procedure 1 Right Internal Jugular Infusaport Placement single lumen Edil Pathak MD Jun 26, 2017 09:13
[2017-06-26] MEDS ORDERED: SODIUM CHLORIDE 0.9% FLUSH 10 ML FLUSH IVF PRN (09:15)
[2017-06-26 09:40] VITALS: BP 127/67; PULSE 82; RESP 16; O2SAT 94
[2017-06-26 10:10] VITALS: BP 118/72; PULSE 84; RESP 18; O2SAT 94
[2017-06-26 10:40] VITALS: BP 101/66; PULSE 92; RESP 18; O2SAT 95
--- NOTE | 2017-06-26 13:15 | RADRPT ---
EXAM DATE/TIME: 06/26/2017 08:00 [facility] COMPARISON: No previous studies available for comparison. INDICATIONS : Patient with history of right lung cancer in need of [id number] placement. MEDICAL HISTORY : HTN, Right lung mass, Diabetes, [place] SURGICAL HISTORY : Colonoscopy, Lung mass biopsy, Cardiac stents, Right lobe surgical resection ENCOUNTER: Initial ACUITY: >1 year PAIN SCORE: 0/10 FLUORO TIME: 0.2 minutes IMAGE SERIES: 1 SEDATION TIME: 30 minutes ACCESS: Right internal jugular vein SEDATION: 1.) 3 mg midazolam (Versed) IV 2.) 150 mcg fentanyl (Sublimaze) IV Prophylactic antibiotics were administered with appropriate pre-procedure timing. Vancomycin within 2 hours of procedure, Ancef (or alternative) within 1 hour of procedure. DEVICE: 1. 8 Hebrew single lumen Xcela plus port PROCEDURE : 1. Continuous pulse oximetry and EKG monitoring. 2. Intravenous conscious sedation. 3. Ultrasound guidance for venous access. 4. Fluoroscopic guided implantable central venous port placement. The patient was placed supine. The neck was prepped in sterile fashion. Full sterile technique was u sed, including cap, mask, sterile gloves and gown, and a large sterile sheet. Hand hygiene and 2% ch lorhexidine Betadine was utilized per protocol for cutaneous antisepsis with appropriate dry time for site. Sterile gel and sterile probe cover were utilized for ultrasound guidance. The skin and sub cutaneous tissues were infiltrated with local anesthetic solution. Under direct ultrasound guidance, central venous access was accomplished in the targeted vessel. The ultrasound images depicting access guidance were stored and saved to PACS for permanent record. A s ubcutaneous pocket was created using blunt dissection. The port was introduced to the pocket. The c atheter tubing was fed through a subcutaneous tunnel to the venotomy site. The catheter tubing was c ut to a suitable length and then was introduced through a valved Peel-Away sheath and positioned with catheter tubing tip at the cavo-atrial junction level. The pocket incision was closed with subcutic ular Vicryl suture. Steri-Strips were applied. The port was flushed and locked with heparin solutio n per protocol. Sterile dressing was applied to the site. The patient tolerated the procedure well. Conscious sedation was performed with the prescribed dosages and duration as above in the presence of an independent trained radiology nurse to assist in the monitoring of the patient. EKG and oximetry remained stable throughout the procedure. The patient tolerated the procedure well and there were no complications. The patient was sent to post anesthesia recovery in stable condition. CONCLUSION: Uncomplicated ultrasound and fluoroscopic guided implanted central venous port catheter placement as described in detail above. An 8 Hebrew Power port was placed. Edil Pathak MD on June 26, 2017 at 13:13 Board Certified Radiologist. This report was verified electronically.
== END 2017-06-26 11:10 | disposition home or self-care (01) ==
LOC: HROP 06:36 → HRIP 06:39 → HROP 11:10
PROVIDERS: ATTEND Internal Medicine Hematology & Oncology
DX: Z45.2 Encounter for adjustment and management of vascular access device (principal); C34.10 Malignant neoplasm of upper lobe, unspecified bronchus or lung; I10 Essential (primary) hypertension; I25.10 Atherosclerotic heart disease of native coronary artery without angina pectoris; E11.9 Type 2 diabetes mellitus without complications; Z95.5 Presence of coronary angioplasty implant and graft; Z79.01 Long term (current) use of anticoagulants; Z79.4 Long term (current) use of insulin; Z87.891 Personal history of nicotine dependence
CPT/HCPCS: 36561; 76937; 77001; 99152; 99153; C1788; J0690; J1642; J2250; J3010; J3370; J7030; J7050